=== PATIENT | male | born 1955 | race Caucasian/White ===

== ENCOUNTER 2020-06-17 10:41 | Emergency (ER) | payer MEDICARE, BC ==
[~2020-06-17] VITALS: Ht 182.9 cm; Wt 97.7 kg
[~2020-06-17 10:41] MED LIST: AMLO10TA PO; ASPI-1265 PO; ATOR-2 PO; CELE-85 PO; FURO-150 PO; HYDR25TA4 PO; LISI40TA4 PO; NEBI5TAB10 PO; NITR0.4T51 SL; SILD20TA2 PO; TEMA15CA PO; TICA90TA PO
[2020-06-17] MEDS ORDERED: ondansetron/PF 4mg/2ml inj IV ONE (10:45)
[2020-06-17] MEDS ORDERED: meclizine 12.5mg tablet PO ONE (11:00)
[2020-06-17] MEDS ORDERED: diazepam inj 5 MG/ML inj. IV ONE ×2 (11:00→13:50)
[2020-06-17 11:08] LABS: BASOPHILS # (AUTO) 0.1 X10'3 (0-0.2); BASOPHILS % (AUTO) 1.1 % (0-1); EOSINOPHILS # (AUTO) 0.1 X10'3 (0-0.9); EOSINOPHILS % (AUTO) 1.1 % (0-6); HEMATOCRIT 43.8 % (42.0-52.0); HEMOGLOBIN 14.7 g/dl (14.0-17.9); LYMPHOCYTES # (AUTO) 1.6 X10'3 (1.1-4.8); LYMPHOCYTES % (AUTO) 16.7 % (21-51); MEAN CORPUSCULAR HEMOGLOBIN 30.5 PG (27.0-31.0); MEAN CORPUSCULAR HGB CONC 33.6 g/dL (33.0-36.5); MEAN CORPUSCULAR VOLUME 90.8 FL (78-98); MEAN PLATELET VOLUME 9.8 FL (7.4-10.4); MONOCYTES # (AUTO) 0.8 X10'3 (0-0.9); MONOCYTES % (AUTO) 7.8 % (2-12); NEUTROPHILS # (AUTO) 7.2 X10'3 (1.8-7.7); NEUTROPHILS % (AUTO) 73.3 % (42-75); PLATELET COUNT 268 X10'3 (140-440); RED BLOOD COUNT 4.83 X10'6 (4.70-6.10); RED CELL DISTRIBUTION WIDTH 13.4 % (11.5-14.5); WHITE BLOOD COUNT 9.8 X10'3 (4.5-11.0)
[2020-06-17 11:26] LABS: ALANINE AMINOTRANSFERASE 32 U/L (12-78); ALBUMIN 3.5 G/DL (3.4-5.0); ALKALINE PHOSPHATASE 119 IU/L (46-116); ANION GAP 8 (8-16); ASPARTATE AMINO TRANSFERASE 24 U/L (10-37); BILIRUBIN,TOTAL 0.5 MG/DL (0.1-1.0); BLOOD UREA NITROGEN 27 MG/DL (7-18); BUN/CREATININE RATIO 19.9 (5.4-32.0); CALCIUM 9.1 MG/DL (8.5-10.1); CHLORIDE 104 MMOL/L (99-107); CREATININE 1.36 MG/DL (0.60-1.10); GLUCOSE 174 MG/DL (70-104); POTASSIUM 3.6 MMOL/L (3.5-5.1); SODIUM 139 MMOL/L (135-145); TOTAL CARBON DIOXIDE 27.2 MMOL/L (24-32); TOTAL PROTEIN 7.1 G/DL (6.4-8.2); eGFR 52 ML/MIN
[2020-06-17 11:34] LABS: MAGNESIUM 2.1 MG/DL (1.5-2.4)
--- NOTE | 2020-06-17 11:41 | NUR ---
TC FROM NEIGHBOR, DR. GOYAL. CONTACT NUMBER IS [phone]
[2020-06-17] MEDS ORDERED: normal saline 1000ML IV soln IVB ONE (12:00)
[2020-06-17] MEDS ORDERED: ONDA8TAB6 PO (13:30)
[2020-06-17] MEDS ORDERED: MECL-159 PO (13:30)
[2020-06-17] MEDS ORDERED: VAL5T PO (13:30)
[2020-06-17 15:24] VITALS: BP 140/68
== END 2020-06-17 15:26 | disposition home or self-care (01) ==
LOC: ER 10:42
DX: R42 Dizziness and giddiness (principal); R11.2 Nausea with vomiting, unspecified; R07.89 Other chest pain; I25.10 Atherosclerotic heart disease of native coronary artery without angina pectoris; I25.2 Old myocardial infarction; Z88.8 Allergy status to other drugs, medicaments and biological substances; Z79.899 Other long term (current) drug therapy
CPT/HCPCS: 36415; 70450; 71045; 80053; 83735; 83880; 84484; 85025; 93005; 96361; 96374; 96375; 96376; 99285; J2405; J3360; J7030; J8597